=== PATIENT | male | born 1985 ===

== ENCOUNTER 2018-07-22 11:44 | Outpatient (CLI) | payer OTHER ==
[~2018-07-22] VITALS: Ht 172.7 cm; Wt 83.9 kg
[2018-07-22] MEDS ORDERED: FLONASE16 GM NASAL (12:44)
== END 2018-07-22 12:00 | disposition home or self-care (01) ==
LOC: OFIC 805 11:44
DX: J31.0 Chronic rhinitis (principal); H61.23 Impacted cerumen, bilateral